=== PATIENT | female | born 1985 | race Caucasian/White ===

== ENCOUNTER 2023-12-14 09:39 | Outpatient (CLI) | payer OTHER, SELFPAY ==
--- NOTE | 2023-12-14 11:15 | CRLHL7_ITS ---
For Patients: As a result of the Century Cures Act, medical imaging exams and procedure reports are released immediately into your electronic medical record. You may view this report before your referring provider. If you have questions, please contact your health care provider. INDICATION: Abdominal pain TECHNIQUE: Ultrasound OB pelvis transvaginal. Real-time vance-scale imaging of the pelvis was performed. COMPARISON: None FINDINGS: Sonographic imaging demonstrates a single living intrauterine gestation. The embryo demonstrates a regular cardiac rate measuring 100 beats per minute. The embryo`s crown rump length measurement of 0.2 cm corresponds to a gestational age of 5 weeks 5 days with a sonographic due date of 08/10/2024. There is a normal appearing yolk sac. There are no gross abnormalities noted within the embryo at this early state of development. The placenta has not yet developed. There is no sign of perigestational hemorrhage. Maternal right ovarian cyst measuring 10.5 x 10.3 x 11.9 centimeters without septation. Likely left ovarian corpus luteum measuring 3.5 centimeters. There are no suspicious fluid collections noted in the cul-de-sac. Intrauterine device at the lower uterine segment extending to the cervix with 1 arm extending to the margin of the gestational sac. IMPRESSION: 1. Single live intrauterine gestation with a sonographic age of 5 weeks 5 days. 2. Intrauterine device present within the lower uterine segment extending to the cervix with 1 arm extending near the margin of the gestational sac. 3. Left ovarian corpus luteum with right ovarian simple cyst measuring up to 11.9 centimeters. Dictated by Reyes Mascorro MD @ 12/14/2023 11:37:07 AM (Electronically Signed)
== END 2023-12-14 09:40 | disposition home or self-care (01) ==
PROVIDERS: PCP Family Medicine; Visit Provider Family Medicine
DX: M54.9 Dorsalgia, unspecified (principal); R10.9 Unspecified abdominal pain; Z32.01 Encounter for pregnancy test, result positive
CPT/HCPCS: 76817; 80053; 84702; 86140; 87086; 93976

== ENCOUNTER 2023-12-25 12:47 | Outpatient (CLI) | payer OTHER, SELFPAY ==
--- NOTE | 2023-12-25 13:00 | CRLHL7_ITS ---
For Patients: As a result of the Century Cures Act, medical imaging exams and procedure reports are released immediately into your electronic medical record. You may view this report before your referring provider. If you have questions, please contact your health care provider. INDICATION: Follow-up viability COMPARISON: 12/14/2023 TECHNIQUE: Real-time vance-scale imaging of the pelvis was performed. FINDINGS: Sonographic imaging demonstrates a single living intrauterine gestation. The embryo demonstrates a regular cardiac rate measuring 160 beats per minute. The embryo`s crown-rump length measurement of 1.0 cm corresponds to a gestational age of 7 weeks 1 day with a sonographic due date of 08/11/2024. There is a normal-appearing yolk sac. There are no gross abnormalities noted within the embryo at this early state of development. The gestational sac has a normal appearance. There is no evidence of a perigestational hemorrhage. The amount of fluid within the sac appears appropriate for gestational age. The cervix is closed. The myometrium appears normal. Simple right ovarian cyst measures 12.1 x 9.6 x 9.6 cm. Left ovarian cyst measures 3.5 x 3.2 x 2.9 cm. IUD is no longer present. There are no suspicious fluid collections noted in the cul-de-sac. IMPRESSION: Single living intrauterine with sonographic gestational age 7 weeks 1 day and sonographic due date of 08/11/2024. Bilateral ovarian cysts measuring up to 12.1 cm on the right. Dictated by Az Downey MD @ 12/26/2023 7:37:04 AM (Electronically Signed)
== END 2023-12-25 12:48 | disposition home or self-care (01) ==
LOC: US 12:49
PROVIDERS: PCP Family Medicine; Visit Provider Obstetrics & Gynecology
DX: Z34.91 Encounter for supervision of normal pregnancy, unspecified, first trimester (principal); O34.81 Maternal care for other abnormalities of pelvic organs, first trimester; N83.201 Unspecified ovarian cyst, right side; N83.202 Unspecified ovarian cyst, left side; Z3A.01 Less than 8 weeks gestation of pregnancy
CPT/HCPCS: 76801; 76817; 93976

== ENCOUNTER 2023-12-25 14:16 | Outpatient (CLI) | payer OTHER, SELFPAY ==
[2023-12-25 23:10] LABS: Chlamydia DNA Amplified* NOT DETECTED (No Detected); GC DNA Amplified* NOT DETECTED (No Detected)
[2023-12-29 14:02] LABS: HPV Source Cervical; HPV, High Risk by TMA Not Detected
== END 2023-12-25 14:17 | disposition home or self-care (01) ==
PROVIDERS: PCP Family Medicine; Visit Provider Obstetrics & Gynecology
DX: Z34.91 Encounter for supervision of normal pregnancy, unspecified, first trimester (principal); Z12.4 Encounter for screening for malignant neoplasm of cervix; Z3A.01 Less than 8 weeks gestation of pregnancy
CPT/HCPCS: 86592; 86703; 86704; 86706; 86762; 86787; 86803; 86850; 86900; 86901; 87086; 87340; 87491; 87591; 87624; 87625; 88141; 88142

== ENCOUNTER 2024-03-27 07:47 | Outpatient (CLI) | payer OTHER, SELFPAY | END 2024-03-27 07:48 | disposition home or self-care (01) | LOC: US 07:49 | PROVIDERS: PCP Family Medicine; Visit Provider Obstetrics & Gynecology | DX: O09.522 Supervision of elderly multigravida, second trimester (principal); O34.82 Maternal care for other abnormalities of pelvic organs, second trimester; N83.201 Unspecified ovarian cyst, right side; Z3A.20 20 weeks gestation of pregnancy | CPT/HCPCS: 76811; 76817 ==

== ENCOUNTER 2024-03-29 11:20 | Outpatient (CLI) | payer OTHER, SELFPAY | END 2024-03-29 11:21 | disposition home or self-care (01) | LOC: NFLDREF 04-02 09:52 | PROVIDERS: PCP Family Medicine; Referring Provider Family Medicine; Visit Provider Obstetrics & Gynecology | DX: O10.912 Unspecified pre-existing hypertension complicating pregnancy, second trimester (principal); Z3A.20 20 weeks gestation of pregnancy | CPT/HCPCS: 82565; 82570; 84156; 84450; 84460 ==

== ENCOUNTER 2024-04-01 08:00 | Outpatient (CLI) | payer OTHER, SELFPAY | END 2024-04-01 08:01 | disposition home or self-care (01) | LOC: NFLDREF 04-03 03:46 | PROVIDERS: PCP Family Medicine; Referring Provider Family Medicine; Visit Provider Obstetrics & Gynecology | DX: O10.912 Unspecified pre-existing hypertension complicating pregnancy, second trimester (principal); Z3A.21 21 weeks gestation of pregnancy | CPT/HCPCS: 82570; 84156 ==

== ENCOUNTER 2024-04-02 15:13 | Outpatient (CLI) | payer OTHER, SELFPAY | END 2024-04-02 15:14 | disposition home or self-care (01) | LOC: MRI 15:15 | PROVIDERS: PCP Family Medicine; Visit Provider Obstetrics & Gynecology | DX: O09.529 Supervision of elderly multigravida, unspecified trimester (principal); O34.80 Maternal care for other abnormalities of pelvic organs, unspecified trimester; N83.201 Unspecified ovarian cyst, right side; N83.202 Unspecified ovarian cyst, left side | CPT/HCPCS: 72195 ==

== ENCOUNTER 2024-04-24 12:01 | Outpatient (CLI) | payer OTHER, SELFPAY | END 2024-04-24 12:02 | disposition home or self-care (01) | LOC: US 12:02 | PROVIDERS: PCP Family Medicine; Visit Provider Obstetrics & Gynecology | DX: Z34.92 Encounter for supervision of normal pregnancy, unspecified, second trimester (principal); Z3A.24 24 weeks gestation of pregnancy | CPT/HCPCS: 76816 ==

== ENCOUNTER 2024-05-06 15:25 | Outpatient (CLI) | payer OTHER, SELFPAY ==
--- NOTE | 2024-05-06 15:45 | CRLHL7_ITS ---
For Patients: As a result of the Century Cures Act, medical imaging exams and procedure reports are released immediately into your electronic medical record. You may view this report before your referring provider. If you have questions, please contact your health care provider. CLINICAL HISTORY: cyst of kidney COMPARISON: MRI 04/02/2024 TECHNIQUE: Castellano scale and color Doppler images were acquired of the kidneys and urinary bladder. FINDINGS: Nonvascular hyperechoic structure right kidney measures 1.5 x 1.2 x 1.2 cm corresponds with a nonenhancing right renal lesion on prior MRI. No hydronephrosis. No renal stone. The right kidney measures 12.7cm in length and the left kidney measures 12.5cm in length. The renal cortex appears of normal thickness. Bladder volume 91 cc. Color Doppler images reveal a normal appearance of both ureteral jets. There is no evidence of bladder calculi or diverticula. IMPRESSION: Benign nonvascular hyperechoic structure arising from the lower pole of the right kidney measuring 1.5 cm compatible with an angiomyolipoma. Dictated by Az Downey MD @ 05/07/2024 8:45:25 AM (Electronically Signed)
== END 2024-05-06 15:26 | disposition home or self-care (01) ==
PROVIDERS: PCP Family Medicine; Visit Provider Obstetrics & Gynecology
DX: O26.839 Pregnancy related renal disease, unspecified trimester (principal); N28.1 Cyst of kidney, acquired
CPT/HCPCS: 76770

== ENCOUNTER 2024-05-24 12:05 | Outpatient (CLI) | payer OTHER, SELFPAY | END 2024-05-24 12:06 | disposition home or self-care (01) | LOC: NFLDREF 05-28 18:23 | PROVIDERS: PCP Family Medicine; Referring Provider Family Medicine; Visit Provider Obstetrics & Gynecology | DX: Z34.93 Encounter for supervision of normal pregnancy, unspecified, third trimester (principal); Z3A.28 28 weeks gestation of pregnancy | CPT/HCPCS: 86592 ==

== ENCOUNTER 2024-05-24 12:07 | Outpatient (CLI) | payer OTHER, SELFPAY ==
--- NOTE | 2024-05-24 12:15 | CRLHL7_ITS ---
For Patients: As a result of the Century Cures Act, medical imaging exams and procedure reports are released immediately into your electronic medical record. You may view this report before your referring provider. If you have questions, please contact your health care provider. OB ULTRASOUND GROWTH HERMELINDA by US: 08/10/2024. GA: 28 w, 6 d. Single. Comparison: 04/24/2024, 04/12/2024, 04/05/2024. INDICATION: Hypertension. TECHNIQUE: Real time vance scale imaging of the fetus was performed. Transabdominal. CERVIX: Not visualized. POSITIONING: Vertex. AMNIOTIC FLUID: 5.3 cm. SDP (N: greater than 2 x 1 cm) PLACENTA: Technique: Transabdominal. PLACENTA POSITION: Posterior. DOPPLER: heart rate: 135 bpm. BIOMETRY: BPD: 7.1 cm. 28 w, 4 d, 30 percent. HC: 26.5 cm. 28 w, 6 d, 17 percent. AC: 24.7 cm. 29 w, 0 d, 46 percent. FL: 5.4 cm. 28 w, 4 d, 26 percent. FL/AC ratio: 21.81 percent. HC/AC ratio: 1.07. EFW: 1282 g. Weight: 2 lbs, 13 oz. age by this US: 28 w, 5 d. HERMELINDA by this US: 08/11/2024. Percentile by HERMELINDA: 34 percent. IMPRESSION: 1. Sonographic gestational age 28 weeks 5 days and sonographic due date 08/11/2024. Good correlation with dates. Normal interval growth. 2. Estimated weight 34th percentile. Abdominal circumference 46th percentile. Az Downey M.D. Diagnostic Radiologist [email or web address] SP/Dictated by: Az Downey MD @ 05/24/2024 5:43:00 PM (Electronically Signed)
== END 2024-05-24 12:08 | disposition home or self-care (01) ==
LOC: US 12:07
PROVIDERS: PCP Family Medicine; Visit Provider Obstetrics & Gynecology
DX: O10.913 Unspecified pre-existing hypertension complicating pregnancy, third trimester (principal); Z3A.28 28 weeks gestation of pregnancy
CPT/HCPCS: 76816

== ENCOUNTER 2024-06-11 09:16 | Outpatient (CLI) | payer OTHER, SELFPAY | END 2024-06-11 09:17 | disposition home or self-care (01) | PROVIDERS: PCP Family Medicine; Visit Provider Obstetrics & Gynecology | DX: O10.913 Unspecified pre-existing hypertension complicating pregnancy, third trimester (principal); Z3A.31 31 weeks gestation of pregnancy | CPT/HCPCS: 82565; 82570; 84156; 84450; 84460; 84550 ==

== ENCOUNTER 2024-06-13 11:17 | Outpatient (CLI) | payer OTHER, SELFPAY ==
[2024-06-13] VITALS (61 sets, daily range): BP systolic 116–163; BP diastolic 58–92; PULSE 106–138; O2SAT 94–98
[2024-06-13] MEDS: NIFEdipine 10 MG CAPSULE PO (12:02)
[2024-06-13] MEDS: LACTATED RINGERS 1000 ML 1,000 ML 500 ML IV (12:25)
[2024-06-13 12:30] LABS: Hematocrit 38.5 % (33.0-51.0); Hemoglobin* 13.1 gm/dL (12.0-16.0); Mean Corpuscular HGB Conc 34 gm/dL (32-36); Mean Corpuscular Hemoglobin 31 pg (26-34); Mean Corpuscular Volume 91 fL (80-100); Platelet Count* 287 K/uL (140-440); Red Blood Count 4.21 m/uL (4.00-5.20); Slide Review Reflex No
[2024-06-13 12:31] LABS: Total Protein Urine 15 mg/dL
[2024-06-13 12:32] LABS: Creatinine Urine 54.7 mg/dL; Protein Creatinine Ratio Urine 0.27 (0-0.19)
--- NOTE | 2024-06-13 12:38 | CRLHL7_ITS ---
For Patients: As a result of the Cures Act, medical imaging exams and procedure reports are released immediately into your electronic medical record. You may view this report before your referring provider. If you have questions, please contact your health care provider. INDICATION: : CRACKS IN LOWER LOBES COMPARISON: None TECHNIQUE: One view(s) of the chest FINDINGS: Examination is somewhat limited secondary to patient body habitus. The cardiomediastinal silhouette and pulmonary vasculature are unremarkable. There is no focal airspace consolidation, pleural effusion, or pneumothorax. No displaced fractures. IMPRESSION: No acute cardiopulmonary process. Dictated by Edy Shafer MD @ 06/13/2024 1:06:52 PM (Electronically Signed)
[2024-06-13 12:46] LABS: INR 0.88 (0.91-1.10); Prothrombin Time 12.7 Seconds
[2024-06-13 12:47] LABS: Fibrinogen* 620 mg/dL (200-450); Partial Thromboplastin Time* 27 Seconds (23-33)
[2024-06-13 12:48] LABS: Alanine Aminotransferase* 20 U/L (4-35); Aspartate Amino Transferase* 27 U/L (12-35); Blood Urea Nitrogen* 7 mg/dL (5-24); Creatinine* 0.4 mg/dL (0.5-1.5); Estimated Glomerular Filt Rate 131 ml/min
[2024-06-13] MEDS: ACETAMINOPHEN 500 MG TABLET 1000 MG PO (13:37)
--- NOTE | 2024-06-13 13:57 | P.OBO_ITS ---
OB Outpatient HPI History of Present Illness Date Seen: 06/13/24 History of Present Illness: 38 year old at 31 5/7 weeks gestation by first trimester US, HERMELINDA 08/10/24, presents with concern for headache, elevated heart rate and blood pressures at home. Patient was seen in clinic about 2 days ago and was started on Procardia ER 30mg daily. Patient states she started medication yesterday morning was then at work and her watch alerted her of elevated HR- in the 130s per patient. She also struggled with a headache yesterday that resolved after rest. Patient states that this morning took Procardia again and since symptoms restarted decided to come in for evaluation. Denies chest pain, has noticed some more swelling of hands and feet, but no significant changes there, denies pain in the upper abdomen, no scotoma, no SOB, no orthopnea. Baby moving naturally: Yes Bleeding: No Contractions: No Leaking fluid: No Discharge: No Heartburn: Yes Back pain: No Other comments: Meds Home Medications and Allergies Home Medications ?Medication ?Instructions ?Recorded ?Confirmed ?Type vits no.126-ferrous fum 1 tab PO QDAY 02/26/24 06/13/24 History 28 mg iron-folic acid 800 mcg tablet (Classic ) loratadine 10 mg tablet (Claritin) 10 mg PO QDAY 05/28/24 06/13/24 History Allergies Allergy/AdvReac Type Severity Reaction Status Date / Time azithromycin Allergy Intermediate Hives Verified 06/13/24 11:49 [facility] Medical History (Updated 05/08/24 @ 14:19 by Shae Abdullahi MD) Major depression, recurrent ?F33.9 - Major depressive disorder, recurrent, unspecified (ICD-10) Migraine ?G43.909 - Migraine, unspecified, not intractable, without status migrainosus (ICD-10) Irregular menstrual cycle ?N92.6 - Irregular menstruation, unspecified (ICD-10) History of gestational hypertension (2013) ?Z87.59 - Personal history of other complications of , childbirth and the puerperium (ICD-10) Hirsutism ?L68.0 - Hirsutism (ICD-10) Group B Streptococcus carrier, +RV culture, currently (05/18/18) ?O99.820 - Streptococcus B carrier state complicating (ICD-10) Generalized anxiety disorder ?F41.1 - Generalized anxiety disorder (ICD-10) Surgical History (Updated 12/14/23 @ 12:06 by Yocasta Hughes MD) Status post repeat low transverse section (05/29/18) ?Z98.891 - History of uterine scar from previous surgery (ICD-10) History of third molar tooth extraction ?K08.409 - Partial loss of teeth, unspecified cause, unspecified class (ICD- 10) History of section ?Z98.891 - History of uterine scar from previous surgery (ICD-10) Family History Maternal Grandfather Bladder cancer Esophageal cancer Mother Breast cancer High blood pressure Maternal Grandmother Diabetes Social History (Updated 12/25/23 @ 13:56 by Regina Melchor MA) Narrative: , two kids, nonsmoker, social alcohol What is your current living situation?: I presently have a place to live Problems where you live: no known problems In the past 12 months, utilities in danger of being shut off: no In past 12 months, lack of transportation kept you from medical appts, meetings, work, or getting things needed for daily living: no In the past 12 mos, have been you worried that your food would run out before you had money to buy more?: never true In the past 12 mos, the food you bought just didn't last and you didn't have money to buy more?: never true Smoking Status: Never smoker How often does anyone, including family, friends and others, physically hurt you : never How often does anyone, including family, friends and others, insult or talk down to you: never How often does anyone, including family, friends and others, threaten you with harm: never How often does anyone, including family, friends and others, scream or curse at you: never History History 3 Elective abortions Para 2 Spontaneous abortions Hx # Term Pregnancies Ectopic pregnancies Hx # Pregnancies Multiple births Number of Living Children 2 Past Pregnancies Del. Date GA/Weeks Outcome Route wt Inf Gender Labor Lgth Anesthesia Location Provider Compli 03/10/13 live - full term low transverse Male 05/29/18 live - full term low transverse Femal e Delivery Date: 03/10/13 Last Updated by: Regina Galeas ~ [facility] Delivery Date: 05/29/18 Last Updated by: Regina Galeas ~ [facility] OB - H&P: Exam Physical Exam Vital signs: Pulse BP Pulse Ox 114 H 136/81 95 06/13/24 13:55 06/13/24 13:55 06/13/24 13:53 Narrative: GENERAL APPEARANCE:? normal affect, alert, no distress MOOD:? appropriate CHEST:? clear to auscultation bilaterally HEART:? tachycardic, no significant murmurs ABDOMEN:? Gravid, nontender EXTREMITIES:? Mild trace edema up to ankles bilaterally, no asymmetry, no skin changes, negative Pia's sign. NST: 130bpm/positive accelerations/sporadic small variable decelerations/moderate variability/sporadic uterine contractions Labs Labs Laboratory Tests 06/13/24 06/13/24 Range/Units 12:23 12:05 WBC 16.10 H (4.50-11.00) K/uL RBC 4.21 (4.00-5.20) m/uL Hgb 13.1 (12.0-16.0) gm/dL Hct 38.5 (33.0-51.0) % MCV 91 (80-100) fL MCH 31 (26-34) pg MCHC 34 (32-36) gm/dL Plt Count 287 (140-440) K/uL INR 0.88 L (0.91-1.10) APTT 27 (23-33) Seconds Fibrinogen 620 H (200-450) mg/dL BUN 7 (5-24) mg/dL Creatinine 0.4 L (0.5-1.5) mg/dL Estimated GFR 131 ml/min AST 27 (12-35) U/L ALT 20 (4-35) U/L Urine Creatinine 54.7 mg/dL Protein/Creatinin Ratio 0.27 H (0-0.19) Urine Total Protein 15 mg/dL Assessment and Plan Assessment and plan (1) : Status: Acute (2) Chronic hypertension in : Status: Acute Plan 38 y/o who presents for evaluation due to concerns of headache, elevated heart rate and blood pressure. Patient is 31 5/7 weeks and with diagnosis of CHTN. Started on Nifedipine ER 30 mg daily 2 days ago. Upon evaluation at labor and delivery initially patient found severely hypertensive and we treated this with 1 dose of oral nifedipine 10mg immediate release. This decreased blood pressures to the mild high range. Lab work repeated today and no concern for thrombocytopenia, transaminitis or kidney dysfunction. P/C ratio normal as well. Nursing team upon initial evaluation had concerns about decreased lung sound in her bases and in the setting of tachycardia, elected to proceed with CXRAY that was normal. Upon my physical exam no concern for DVT, PE. No concern for cardiac etiology, and findings most consistent with uncontrolled CHTN as well as suspicion for medication side effect. We did treat headache with Tylenol and this resolved, IVfs given and tachycardia also improved. Discussed possibility of changing her to Labetalol as she has had baseline higher heart rate and labetalol could be helpful. We will try this approach for the moment, I have ordered for her to start Labetalol 200mg BID tonight, discontinue Nifedipine. She will continue to monitor BPs as she is doing at home, will present for re evaluation if there are concerns for persistently elevated BPs in the 160s systolics or 100s diastolics, headache that does not improve with Tylenol, persistent vision changes or pain in her upper abdomen. She has a clinic visit already scheduled for Monday06/17/24.
--- NOTE | 2024-06-13 16:14 | PC.OBNST ---
NST Note NST Note Start: 06/13/24 11:32 Freq: ONCE Status: Active Protocol: Document 06/13/24 16:12 BAW (Rec: 06/13/24 16:14 BAW No Response) NST Note 3 Para (# of births) 2 EDC 08/10/24 Gestational Age In Weeks & Days 31 Weeks & 5 Days Patient Presented with Complaint(s) of Headache,Other Other Complaints R/O Pre E Reactive Yes Appropriate for Gestational Age Yes HAMIDA Cotto RNC Date 06/13/24 Reactive Yes Appropriate for Gestational Age Yes HAMIDA Bowen RN Date 06/13/24 OB NST charge Yes Complete NST Note via Write Note Yes The provider's electronic signature indicates the NST is reactive/appropriate for gestational age. *Note to provider: If an addendum is required, open the patient's chart and click on the note under the Nurse/Allied Health tab.
== END 2024-06-13 15:06 | disposition home or self-care (01) ==
LOC: OB OUT 11:19 → OB 11:46
PROVIDERS: PCP Family Medicine; Visit Provider Obstetrics & Gynecology
DX: O26.893 Other specified pregnancy related conditions, third trimester (principal); R51.9 Headache, unspecified; Z3A.31 31 weeks gestation of pregnancy
CPT/HCPCS: 36415; 59025; 71045; 82565; 82570; 84156; 84450; 84460; 84520; 85027; 85384; 85610; 85730; G0463; A9270; J7120

== ENCOUNTER 2024-06-17 12:48 | Outpatient (CLI) | payer OTHER, SELFPAY ==
--- NOTE | 2024-06-17 13:00 | CRLHL7_ITS ---
For Patients: As a result of the Century Cures Act, medical imaging exams and procedure reports are released immediately into your electronic medical record. You may view this report before your referring provider. If you have questions, please contact your health care provider. OB ULTRASOUND LMP: Unknown. HERMELINDA by US: 08/10/2024. GA: 32 w, 2 d. Single. Comparison: 05/24/2024, 04/24/2024, 04/12/2024. MRI 04/02/2024. INDICATION: Pre-existing HTN. TECHNIQUE: Real time grayscale imaging of the fetus was performed. Transabdominal. CERVIX: Not visualized. POSITIONING: Vertex. AMNIOTIC FLUID: BRITANY: 27.4 cm. 9.3 cm SDP (N: greater than 2 x 1 cm) BIOPHYSICAL PROFILE: 2: Gross body movements 2: tone 2: Respiratory activity 2: Amniotic fluid SDP (N: greater than 2 x 1 cm) 09/13: Total score PLACENTA: Technique: Transabdominal. PLACENTA POSITION: Posterior. DOPPLER: heart rate: 138 bpm. BIOMETRY: BPD: 8.1 cm. 32 w, 3 d, 45.5 percent. HC: 29.8 cm. 33 w, 0 d, 31.2 percent. AC: 27.9 cm. 31 w, 6 d, 38.1 percent. FL: 6.0 cm. 31 w, 2 d, 13.4 percent. FL/AC ratio: 21.5 percent. HC/AC ratio: 1.1. EFW: 1853 g. Weight: 4 lbs, 1 oz. age by this US: 32 w, 1 d. HERMELINDA by this US: 08/11/2024. Percentile by HERMELINDA: 26.7 percent. IMPRESSION: 1. Normal biophysical profile 09/13. 2. Sonographic gestational age 32 weeks 1 day and sonographic due date 08/11/2024. Good correlation with dates. Normal interval growth. 3. Estimated weight 27th percentile. Abdominal circumference 38th percentile. 4. Amniotic fluid, single deepest pocket 9.3 cm. BRITANY 27.4 cm. 5. Large right adnexal cyst measures 14.3 x 11.3 x 9.2 cm, previously measuring 15.1 cm on 04/24/2024. 6. Left adnexal cysts measure up to 4.9 x 4.0 x 4.1 cm, previously measuring up to 5.2 cm on 04/24/2024. Solid nodular area associated with one of the left adnexal cysts measures 1 cm, not significantly changed. Az Downey M.D. Diagnostic Radiologist [email or web address] VANESSA/jinocente jj/Dictated by: Az Downey MD @ 06/18/2024 6:08:00 AM (Electronically Signed)
== END 2024-06-17 12:49 | disposition home or self-care (01) ==
LOC: US 12:49
PROVIDERS: PCP Family Medicine; Visit Provider Obstetrics & Gynecology
DX: O10.913 Unspecified pre-existing hypertension complicating pregnancy, third trimester (principal); O09.523 Supervision of elderly multigravida, third trimester; O34.83 Maternal care for other abnormalities of pelvic organs, third trimester; N83.292 Other ovarian cyst, left side; N83.291 Other ovarian cyst, right side; Z3A.32 32 weeks gestation of pregnancy
CPT/HCPCS: 76816; 76819; 82565; 82570; 84156; 84450; 84460

== ENCOUNTER 2024-06-24 10:37 | Outpatient (CLI) | payer OTHER, SELFPAY ==
--- NOTE | 2024-06-24 10:45 | CRLHL7_ITS ---
For Patients: As a result of the Cures Act, medical imaging exams and procedure reports are released immediately into your electronic medical record. You may view this report before your referring provider. If you have questions, please contact your health care provider. OB ULTRASOUND HERMELINDA by US: 08/10/2024. GA: 33 w, 2 d. Single. Comparison: 06/17/2024, 05/24/2024, 04/24/2024. INDICATION: CHTN. TECHNIQUE: Real time grayscale imaging of the fetus was performed. Transabdominal. CERVIX: Not visualized. POSITIONING: Vertex. AMNIOTIC FLUID: 6.6 cm. SDP (N: greater than 2 x 1 cm) BIOPHYSICAL PROFILE: 2: Gross body movements 2: tone 2: Respiratory activity 2: Amniotic fluid SDP (N: greater than 2 x 1 cm) 8/8: Total score PLACENTA: Technique: Transabdominal. PLACENTA POSITION: Posterior. DOPPLER: heart rate: 134 bpm. IMPRESSION: 1. Normal biophysical profile score 8/8. 2. Complex right ovarian cyst with diffuse low-level internal echoes measures 15.3 x 9.5 x 11.7 cm. Simple left ovarian cyst measures 4.8 x 4.5 x 5.4 cm. Az Downey M.D. Diagnostic Radiologist [email or web address] VANESSA/susan davis/Dictated by: Az Downey MD @ 06/24/2024 11:38:00 AM (Electronically Signed)
== END 2024-06-24 10:38 | disposition home or self-care (01) ==
LOC: US 10:37
PROVIDERS: PCP Family Medicine; Visit Provider Obstetrics & Gynecology
DX: O10.913 Unspecified pre-existing hypertension complicating pregnancy, third trimester (principal); O09.523 Supervision of elderly multigravida, third trimester; Z3A.33 33 weeks gestation of pregnancy
CPT/HCPCS: 76819; 82565; 82570; 84156; 84450; 84460

== ENCOUNTER 2024-07-02 13:33 | Outpatient (CLI) | payer OTHER, SELFPAY ==
--- NOTE | 2024-07-02 13:45 | CRLHL7_ITS ---
For Patients: As a result of the Cures Act, medical imaging exams and procedure reports are released immediately into your electronic medical record. You may view this report before your referring provider. If you have questions, please contact your health care provider. OB ULTRASOUND HERMELINDA by US: 08/10/2024. GA: 34 w, 3 d. Single. INDICATION: HTN. TECHNIQUE: Real time grayscale imaging of the fetus was performed. Transabdominal. CERVIX: Not visualized. POSITIONING: Vertex. AMNIOTIC FLUID: 6.6 cm. SDP (N: greater than 2 x 1 cm) BIOPHYSICAL PROFILE: 2: Gross body movements 2: tone 2: Respiratory activity 2: Amniotic fluid SDP (N: greater than 2 x 1 cm) 8/8: Total score PLACENTA: Technique: Transabdominal. PLACENTA POSITION: Posterior. DOPPLER: heart rate: 131 bpm. IMPRESSION: 1. Normal biophysical profile score 8/8. 2. Large right ovarian cyst with diffuse low-level internal echoes again noted measuring 16.5 x 10.3 x 9.2 cm, previously measuring 15.3 cm. 3. Simple left ovarian cyst measures 5.8 x 4.6 x 5.4 cm, previously measuring 5.4 cm. Az Downey M.D. Diagnostic Radiologist [email or web address] VANESSA/susan davis/Dictated by: Az Downey MD @ 07/03/2024 9:22:00 AM (Electronically Signed)
== END 2024-07-02 13:34 | disposition home or self-care (01) ==
LOC: US 13:33
PROVIDERS: PCP Family Medicine; Visit Provider Obstetrics & Gynecology
DX: O10.913 Unspecified pre-existing hypertension complicating pregnancy, third trimester (principal); O09.523 Supervision of elderly multigravida, third trimester; O34.83 Maternal care for other abnormalities of pelvic organs, third trimester; N83.292 Other ovarian cyst, left side; N83.201 Unspecified ovarian cyst, right side; Z3A.34 34 weeks gestation of pregnancy
CPT/HCPCS: 76819; 82565; 82570; 84156; 84450; 84460

== ENCOUNTER 2024-07-08 12:03 | Outpatient (CLI) | payer OTHER, SELFPAY ==
--- NOTE | 2024-07-08 12:15 | CRLHL7_ITS ---
For Patients: As a result of the Century Cures Act, medical imaging exams and procedure reports are released immediately into your electronic medical record. You may view this report before your referring provider. If you have questions, please contact your health care provider. OB ULTRASOUND HERMELINDA by US: 08/10/2024. GA: 35 w, 2 d. Single. COMPARISON: 07/02/2024, 06/24/2024, 06/17/2024. INDICATION: CHTN. TECHNIQUE: Real time vance scale imaging of the fetus was performed. Transabdominal imaging performed. CERVIX: Not visualized. POSITIONING: Vertex. AMNIOTIC FLUID: 6.7 cm. SDP (N: greater than 2 x 1 cm). BIOPHYSICAL PROFILE: Gross body movements: 2. tone: 2. Respiratory activity: 2. Amniotic fluid: 2. SDP (N: greater than 2 x 1 cm) Total score: 8. PLACENTA: Technique: Transabdominal. PLACENTA POSITION: Posterior. DOPPLER: heart rate: 137 bpm. IMPRESSION: 1. Normal biophysical profile 09/13. 2. Similar appearance of the ovarian cysts. Az Downey M.D. Diagnostic Radiologist [email or web address] THERESA/Dictated by: Az Downey MD @ 07/08/2024 8:54:00 PM (Electronically Signed)
== END 2024-07-08 12:04 | disposition home or self-care (01) ==
LOC: US 12:03
PROVIDERS: PCP Family Medicine; Visit Provider Obstetrics & Gynecology
DX: O09.523 Supervision of elderly multigravida, third trimester (principal); O10.913 Unspecified pre-existing hypertension complicating pregnancy, third trimester; Z3A.35 35 weeks gestation of pregnancy
CPT/HCPCS: 76819

== ENCOUNTER 2024-07-08 12:11 | Outpatient (CLI) | payer OTHER, SELFPAY | END 2024-07-08 12:12 | disposition home or self-care (01) | LOC: NFLDREF 07-11 14:00 | PROVIDERS: PCP Family Medicine; Referring Provider Family Medicine; Visit Provider Obstetrics & Gynecology | DX: O10.913 Unspecified pre-existing hypertension complicating pregnancy, third trimester (principal); Z3A.35 35 weeks gestation of pregnancy | CPT/HCPCS: 82565; 82570; 84156; 84450; 84460; 87081; 87653 ==

== ENCOUNTER 2024-07-15 12:41 | Outpatient (CLI) | payer OTHER, SELFPAY ==
--- NOTE | 2024-07-15 13:00 | CRLHL7_ITS ---
For Patients: As a result of the Century Cures Act, medical imaging exams and procedure reports are released immediately into your electronic medical record. You may view this report before your referring provider. If you have questions, please contact your health care provider. OB ULTRASOUND FOLLOW-UP GROWTH WITH BIOPHYSICAL PROFILE, TRANSABDOMINAL LMP: Unknown. HERMELINDA by US: 08/10/2024. GA: 36 w, 2 d. Single. Comparison: 07/08/2024, 07/02/2024, 06/24/2024. INDICATION: CHTN. TECHNIQUE: Real time vance scale imaging of the fetus was performed. Transabdominal imaging performed. CERVIX: Not Visualized. POSITIONING: Vertex. AMNIOTIC FLUID: 5.6 cm SDP (N: greater than 2 x 1 cm) BIOPHYSICAL PROFILE: Gross body movements: 2. tone: 2. Respiratory activity: 2. Amniotic fluid: 2. SDP (N: greater than 2 x 1 cm). Total score: 8. PLACENTA: Technique: Transabdominal. PLACENTA POSITION: Fundal, posterior. DOPPLER: heart rate: 142 bpm. BIOMETRY: BPD: 8.8 cm. 35 w, 3 d, 35.3 percent. HC: 31.8 cm. 35 w, 6 d, 12.7 percent. AC: 32.0 cm. 36 w, 0 d, 51.2 percent. FL: 6.4 cm. 33 w, 0 d, <3 percent. FL/AC ratio: 20.0 percent. HC/AC ratio: 1.0. EFW: 2595 g. Weight: 5 lbs, 12 oz. age by this US: 35 w, 1 d. HERMELINDA by this US: 08/18/2024. Percentile by HERMELINDA: 22.2 percent. IMPRESSION: 1. Stable appearance of the bilateral ovarian cysts. 2. Sonographic gestational age 35 weeks 1 day and sonographic due date 08/18/2024. Sonographic age is 8 days behind the clinical age. 3. Estimated weight 22nd percentile. Abdominal circumference 51st percentile. Femur length less than 3rd percentile. Decreased FL/AC ratio. 4. Biophysical profile 09/13. Az Downey M.D. Diagnostic Radiologist [email or web address] SP/Dictated by: Az Downey MD @ 07/15/2024 4:46:00 PM (Electronically Signed)
== END 2024-07-15 12:42 | disposition home or self-care (01) ==
LOC: US 12:42
PROVIDERS: PCP Family Medicine; Visit Provider Obstetrics & Gynecology
DX: O10.913 Unspecified pre-existing hypertension complicating pregnancy, third trimester (principal); O09.523 Supervision of elderly multigravida, third trimester; Z3A.36 36 weeks gestation of pregnancy
CPT/HCPCS: 76816; 76819

== ENCOUNTER 2024-07-15 12:52 | Outpatient (CLI) | payer OTHER, SELFPAY | END 2024-07-15 12:53 | disposition home or self-care (01) | LOC: NFLDREF 07-16 01:42 | PROVIDERS: PCP Family Medicine; Referring Provider Family Medicine; Visit Provider Obstetrics & Gynecology | DX: O10.913 Unspecified pre-existing hypertension complicating pregnancy, third trimester (principal); Z3A.36 36 weeks gestation of pregnancy | CPT/HCPCS: 82565; 82570; 84156; 84450; 84460 ==

== ENCOUNTER 2024-07-15 14:52 | Outpatient (CLI) | payer OTHER, SELFPAY ==
[2024-07-15] VITALS (26 sets, daily range): BP systolic 136–161; BP diastolic 78–96; PULSE 80–105; RESP 20; TEMP 36.7; O2SAT 95–99
--- NOTE | 2024-07-15 17:04 | PC.OBNST ---
NST Note NST Note Start: 07/15/24 15:13 Freq: ONCE Status: Active Protocol: Document 07/15/24 17:01 MORMON (Rec: 07/15/24 17:04 MORMON No Response) NST Note 3 Para (# of births) 2 EDC 08/10/24 Gestational Age In 36 Weeks & 2 Days Weeks & Days High Risk Factors High Blood Pressure - Preexisting,Advanced Maternal Age Patient Presented Other with Complaint(s) of Other Complaints Elevated blood pressures in clinic Reactive Yes Appropriate for Yes Gestational Age HAMIDA Floyd Date 07/15/24 Reactive Yes Appropriate for Yes Gestational Age HAMIDA Senior Date 07/15/24 OB NST charge Yes Complete NST Note Yes via Write Note The provider's electronic signature indicates the NST is reactive/appropriate for gestational age. *Note to provider: If an addendum is required, open the patient's chart and click on the note under the Nurse/Allied Health tab.
--- NOTE | 2024-07-15 17:43 | P.OBLDTN_ITS ---
OB - Triage/Final Diagnosis Visit Information Time Seen by Provider: 16:00 Date Seen: 07/15/24 Narrative: The patient is a 38 year old 3 para 2001 at 36.2 weeks gestation by LMP, who presents with elevated blood pressure. She is currently on 600 mg TID of l abetalol. I saw her clinic briefly. She had an initial BP 161/96 that decreased to 153/92. Review of her BP log showed BP 140-150s/70-90s. She did not take her midday dose of labetalol. I asked her to take it when she presented to L&D BP monitoring in the L&D: 146/83, 149/85, 143/81, 140/79, 136/78, 137/81 It is reassuring that the labetalol decreased her BP to normal within 2 hours. This is what's anticipated for onset of action of labetalol. We discussed the importance of taking her BP medication on time. Recommend increasing labetalol 600 mg QID for the next two day prior to her scheduled CD on 07/17/24. Advised patient to taking her AM Labetalol prior to her delivery. We reviewed her pre-e labs: hgb 13.6, plt 231, Cr 0.5, AST 35, ALT 24, P/C ratio of 0.65. She does meet diagnosis of superimposed pre-eclampsia. A 37 week delivery is generally recommended for this diagnosis. However, given her difficult to control chronic hypertension, it is medically indicated that we proceed with delivery in the 36th week. She is s/p BMZ series. Denies any persistent headache, vision changes, SOB, right upper quadrant/epigastric pain, or rapidly expanding edema. We discussed: repeat delivery, bilateral salpingectomy, bilateral cystectomy and possibly right oophorectomy. She strongly desires sterilization. Discussed that my goal is to perform bilateral cystectomy. However, given the size of her right ovarian cyst, there might not be any more normal ovarian tissue left preserved. It is possible that she will require a right oophorectomy. On a she retains 1 ovary, she will not need hormone replacement therapy. She is in agreement with the plan. Physical exam: General: No acute distress Psych: Alert and oriented x4, full affect HEENT: Normocephalic, atraumatic Heart: Regular rate and rhythm, no murmur rub or gallop Lungs: Clear to auscultation bilaterally Abdomen: Gravid. Soft, no tenderness, rebound, or guarding. Cephalic. Lower extremities: +1 bilateral lower extremity edema. Pelvic exam: Deferred. She had growth and BPP today. EFW 22.2 percentile, AC 51st percentile. S DP 5.6 cm. BPP 8/8 Active movement. Denies Ctx, LOF, vaginal bleeding or abnormal vaginal discharge. Strict return and labor precautions reinforced. Plan: - repeat delivery, bilateral salpingectomy, bilateral cystectomy and possibly right oophorectomy on 07/17. - Increased labetalol 600 mg QID. Advised to take the AM of surgery. Evaluation Vital signs: Vital Signs - 24 hr 07/15/24 14:30 07/15/24 14:45 07/15/24 14:54 Temperature 98.1 F Pulse Rate Respiratory Rate 20 20 Blood Pressure 161/96 H 153/92 H Pulse Oximetry 97 97 95 07/15/24 14:59 07/15/24 15:02 07/15/24 15:04 Temperature Pulse Rate 90 Respiratory Rate Blood Pressure 146/83 H Pulse Oximetry 98 99 07/15/24 15:09 07/15/24 15:14 07/15/24 15:17 Temperature Pulse Rate 86 Respiratory Rate Blood Pressure 149/85 H Pulse Oximetry 98 99 07/15/24 15:19 07/15/24 15:24 07/15/24 15:29 Temperature Pulse Rate Respiratory Rate Blood Pressure Pulse Oximetry 98 98 98 07/15/24 15:33 07/15/24 15:34 07/15/24 15:39 Temperature Pulse Rate 94 Respiratory Rate Blood Pressure 143/81 H Pulse Oximetry 97 98 07/15/24 15:44 07/15/24 15:48 07/15/24 15:49 Temperature Pulse Rate 97 Respiratory Rate Blood Pressure 140/79 H Pulse Oximetry 98 99 07/15/24 15:54 07/15/24 15:59 07/15/24 16:03 Temperature Pulse Rate 96 Respiratory Rate Blood Pressure 136/78 Pulse Oximetry 98 96 07/15/24 16:04 07/15/24 16:09 07/15/24 16:14 Temperature Pulse Rate Respiratory Rate Blood Pressure Pulse Oximetry 97 99 98 07/15/24 16:18 07/15/24 16:19 Temperature Pulse Rate 97 Respiratory Rate Blood Pressure 137/81 Pulse Oximetry 97 Final Diagnosis (1) Chronic hypertension with superimposed pre-eclampsia: Status: Acute (2) AMA (advanced maternal age) multigravida 35+: Status: Acute (3) : Status: Acute (4) Right ovarian cyst: Status: Acute Problem details: 12/14/23: 9.6 x 10.1 x 11.4 cm (5) Major depression, recurrent: Status: Acute (6) Generalized anxiety disorder: Status: Acute (7) Hirsutism: Status: Acute
== END 2024-07-15 16:42 | disposition home or self-care (01) ==
LOC: OB OUT 14:52 → OB 14:54
PROVIDERS: PCP Family Medicine; Visit Provider Obstetrics & Gynecology
DX: O10.913 Unspecified pre-existing hypertension complicating pregnancy, third trimester (principal); O09.523 Supervision of elderly multigravida, third trimester; Z3A.36 36 weeks gestation of pregnancy
CPT/HCPCS: 59025; G0463

== ENCOUNTER 2024-07-17 05:43 | Inpatient (IN) | payer OTHER, SELFPAY ==
[2024-07-17] VITALS (29 sets, daily range): BP systolic 126–154; BP diastolic 84–99; PULSE 77–91; RESP 16–18; TEMP 36.7–37.1; O2SAT 97–100; BMI 38.2
[2024-07-17] MEDS: LACTATED RINGERS 1000 ML 1,000 ML 1200 ML IV (06:15)
[2024-07-17 06:31] LABS: Basophils Percent Auto 0.3 % (0.0-3.0); Eosinophils Percent Auto 0.8 % (0.0-7.0); Hematocrit 36.6 % (33.0-51.0); Hemoglobin* 12.4 gm/dL (12.0-16.0); Lymphocytes Percent Auto 15.5 % (20-44); Mean Corpuscular HGB Conc 34 gm/dL (32-36); Mean Corpuscular Hemoglobin 31 pg (26-34); Mean Corpuscular Volume 92 fL (80-100); Monocytes Percent Auto 7.8 % (0.0-11.0); Neutrophils Percent Auto 74.6 % (42.0-72.0); Platelet Count* 231 K/uL (140-440); RDW Coefficient of Variation % 12.7 % (11.5-15.5); Red Blood Count 3.98 m/uL (4.00-5.20); White Blood Count* 11.77 K/uL (4.50-11.00)
[2024-07-17 06:33] LABS: Slide Review Reflex No
--- NOTE | 2024-07-17 06:47 | W.PM.LDBA ---
Subjective History of Present Illness Time Seen by Provider: 06:55 Date Seen: 07/17/24 Narrative: Patient is being admitted to Labor and Delivery for scheduled delivery. She is a 38 year old at 36.4d weeks gestation. Her full history and physical was dictated by myself on 07/02/24. Please see this for details. Last dose of labetalol around 0200. No interval changes since she was last seen. Denies any persistent headache, vision changes, SOB, right upper quadrant/epigastric pain, or rapidly expanding edema. Specific Issues/Plans Partner: Bhavesh Children: Eve Hamilton Baby: [place] H&P completed by Bradly on 07/02/[address] Abdullahi on 07/15: [] # Chronic HTN, on medication (06/11) - Started Nifedipine XL 30 mg QD on 06/11. D/c due to side effect of headache and palpitation. - Started on 200 mg BID Labetalol --> increased to 300 mg BID on 06/17/24 --> 300 mg TID --> 400 mg TID on 07/02/24 --> 600mg TID 06/07/24 - Baseline labs next visit: drawn 03/29/24: wnl - [id number] growth scan starting at 28 weeks - Qweekly surveillance and pre-e labs: surveillance form modified on 06/11/24 - Discussed with patient that if she has SIPreE, delivery would be at 37 weeks on July 20. - CHTN difficult to control 36w-37.6w - Decision made to give patient BMZ#1 on 07/02/24 due to need to keep uptitrating medication and BP that are close to severe ranging. # Conception with Paragard IUD in place - US on 12/14/23: IUD within the lower uterine segment - s/p IUD removal to 12/14/23 without complication # Adnexal mass in - US on 12/14/23: right ovarian simple cyst measuring 11.9 cm - US on 01/04/24: 12.1 x 9.6 x 0.6 cm simple right ovarian cyst - Will monitor growth at anatomy scan - Torsion/rupture precautions reviewed with patient. - Plan for removal at time of repeat CD or sooner as clinically indicated. - Interval growth at FAS: 15.5 x 12 x 8.8 cm and presence of one internal septation (previously simple cyst measuring 12.5 x 11.3 x 10.6 cm on 12/25/2023 and 10.5 x 10.3 x 11.9 on 12/14/2023) - Plan: MRI ordered and PLATE EMBOSSER ONC at [facility] placed (both to be done on 04/02/24): No concern for malignancy. Patient declined surgery in the 2nd trimester. Opted for cystectomy at time of delivery. # Polyhydramnios (mild) > resolved as of 06/24 (MVP 6.6) - SDP 9.3 cm, BRITANY 27.4 cm - surveillance addressed in CHTN # Borderline short cervix - Cervical length 27.9 mm, lower limit of normal - Plan: Qweekly Transvaginal until 23 weeks # Previous CD x 2. Uterine window - Per last op note on 05/29/18: The entire lower uterine segment of the uterus was extremely thin consistent with a window, I would recommend a section prior to 38 weeks - Tentative plan of delivery at 37 weeks - with Vu on 07/22: scheduling form submitted on 05/24/24 # AMA - Level II US - Recommend low dose ASA due to AMA and BMI. Ordered on 01/26/24 # BMI - 35.2 kg/m2 - Growth at 32 weeks # GBS positive # Angiomyolipoma - Benign nonvascular hyperechoic structure arising from the lower pole of the right kidney measuring 1.5 cm compatible with an angiomyolipoma. Imagin03/27/24: EFW 61.2%, AC 56.6%. Normal fluid. Overall normal but Suboptimally used. Will repeat scan 04/05/24: EFW 40%, AC 54%tile. MVP 5.0 cm. Cervix 33.8 mm. Right ovary 13.5 x 9.3 x 10.1 cm left ovary 4.5 x 4.0 x 6.0 cm no increased vascularity or excrescence. 04/12/24: Cervical length 33.3 mm. Stable cervical length. Discontinue cervical length at this time. 04/24/24: EFW 47.9th percentile, AC 44.2 percentile. MVP 6.2 cm. No anomalies commonly detected by ultrasound were identified. Large right ovarian cyst, primarily simple in nature and 15 x 13 cm diameter. Two smaller left ovarian cyst, simple in nature, measuring 5.2 cm maximum diameter for 1 and a 2.9 cm maximum diameter for the other. 06/17: EFW 1853g at 27%ile, AC 38%ile. MVP 9.3cm, BRITANY 27.4cm. 14.3 x 11.3 x 9.2 cm right ovarian cyst, 4.9 x 4.0 x 4.1 cm. 06/24: Prelim tech review - 09/13 BPP, MVP 6.6cm. R ovarian cyst 16.9x10.5x11.6 and L stable. f/u radiology report details. 07/08: Vtx, SDP 6.7cm. BPP 09/13. No comment or measurement of ovarian cysts. NIPT: Declined COVID: Patient wants to plan out when she gets Covid/Flu - will let us know when she wants them (02/26/2024) Flu: Patient wants to plan out when she gets Covid/Flu - will let us know when she wants them (02/26/2024) Tdap:06/11/24 RSV: N/A 32wk Mental Health: 06/11/24 OB - Problem Based A/P Additional Plan (1) Chronic hypertension with superimposed pre-eclampsia: Status: Acute (2) Angiomyolipoma of right kidney: Status: Acute (3) AMA (advanced maternal age) multigravida 35+: Status: Acute (4) : Status: Acute (5) Right ovarian cyst: Problem details: 12/14/23: 9.6 x 10.1 x 11.4 cm Status: Acute (6) Major depression, recurrent: Status: Acute (7) Generalized anxiety disorder: Status: Acute (8) Migraine: Status: Acute Plan The patient was consented for section and blood. She is having a delivery for the indication of: History of delivery x2, undesired fertility, and bilateral ovarian cysts. She was consented for: Repeat delivery, bilateral salpingectomy, bilateral ovarian cystectomy, possible oophorectomy She understands that the four main categories of risk include pain, bleeding, infection, and damage to surrounding structures. Intraoperative pain will be manage with spinal anesthesia or epidural anesthesia. If that those are not effective or not appropriate for the clinical situation, general anesthesia will be administered. Immediately postop, TAP block will be performed. Throughout her recovery course, she will have on PO pain medications such as ibuprofen, Tylenol, and oxycodone. Regarding infection, she understands that we will be delivering appropriate antibiotics, however that the risk of infection following section still is approximately 5-7%. She understands that though the risk is very low that there is always a risk of damage to the bladder, uterus, ovaries, fallopian tubes, bowels, ureters, or even the fetus (0.1-0.3%). This versus increase with subsequent surgery at the same site. She understands that most injuries can be addressed at the time of surgery, however, such an injury may require additional surgeries to fix. She understands that a section carries a risk of bleeding (1-5% risk of hemorrhage), and that while this bleeding can be addressed with multiple medical and surgical modalities (including hysterectomy), that there is the possibility of needing a blood transfusion (0.5-3%). She understands that a section does increase risks for future pregnancies and deliveries including, but not limited to, the risk of uterine rupture or placenta accreta. She desires permanent sterilization so this risk should be obviated. We discussed risks/benefits/alternatives of permanent sterilization. We discussed that there should be clear understanding this is permanent and irreversible. The mechanism of action is to prevent conception by blocking transport of sperm from the lower genital tract to an ovulated oocytes. My preferred method of sterilization is salpingectomy. Salpingectomy is the removal of bilateral fallopian tubes. There is a potential opportunity to decrease the risk of ovarian cancer in patients who already are undergoing pelvic surgery for benign indications. It can decrease the risk of future ovarian cancer by as much as 40-60%. I informed patient that most women who choose sterilization do not regret their decision. CREST study report that 5 year risk of regret is about 7%. Cumulative risk of regret w/in 14 years of procedure is 20% for patient <30 y/o and 6% >30 years of age. Sterilization can be done at the time of delivery or after a vaginal delivery. Patient is aware of alternatives such as medical contraception, LARCs, partner vasectomy etc. given that this was conceived with a copper IUD in place and she needs a delivery regardless, she feels that salpingectomy in the appropriate decision. After counseling, patient was clear and consistent with desire for permanent sterilization and would like to proceed. We discuss the plan for bilateral cystectomy. Given the size of her right ovarian cyst, it is unlikely that there is healthy ovarian tissue to preserve. Oophorectomy on that side is likely. My intention is to preserve at least one ovary. However, bilateral oophorectomy might be necessitated due to certain clinical scenario such as increased concern for malignancy, no normal ovarian tissue noted, bleeding etc. If she has bilateral oophorectomy, she understands that she will need hormone therapy to approximately 51 y/o for best longterm health outcomes. Lastly, VTE after delivery rate is around 0.1-0.4%. Will decrease this risk with SCD use, early ambulation, and thromboprophylaxis medication if needed. We also reviewed postoperative care, recovery, and restrictions. All questions answered to patient's satisfaction and the best of my abilities. Consent form signed and will proceed with the discussed surgical plan. Hgb/plt: 12.4/231 T&S pending OB Exam Physical Exam Vital signs: Pulse BP 85 144/85 H 07/17/24 06:45 07/17/24 06:45 Narrative: Physical exam: General: No acute distress Psych: Alert and oriented x3, full affect HEENT: Normocephalic, atraumatic Lungs: Unlabored breathing Neuro: No focal deficit. Mentating appropriately Pelvic exam: Deferred
[2024-07-17] MEDS: CEFAZOLIN 2 GM INJ IVP (07:32)
--- NOTE | 2024-07-17 07:37 | P.ANES_ITS ---
Anesthesia Charges Start Date/Time Anesthesia Start Date: 07/17/24 Anesthesia Start Time: 07:19 Stop Date/Time Anesthesia Stop Date: 07/17/24 Anesthesia Stop Time: 09:41 Coding CPT Codes CPT Codes: ANESTH CS DELIVERY - 25720 ([id number]) P3 - PATIENT W/SEVERE SYS DISEASE, QK - PICKED EDGE SEWING MACHINE OPERATOR 2-4 CNCRNT ANES PROC, QX - BOAT WRAPPER SVC W/ MD MED DIRECTION
--- NOTE | 2024-07-17 07:37 | W.ANESCHARGE ---
Anesthesia Charges Start Date/Time Anesthesia Start Date: 07/17/24 Anesthesia Start Time: 07:19 Stop Date/Time Anesthesia Stop Date: 07/17/24 Anesthesia Stop Time: 09:41 Coding CPT Codes CPT Codes: ANESTH CS DELIVERY - 35446 ([id number]) P3 - PATIENT W/SEVERE SYS DISEASE, QK - DIRECT MARKETING MANAGER 2-4 CNCRNT ANES PROC, QX - SUPERVISOR TANK HOUSE SVC W/ MD MED DIRECTION
--- NOTE | 2024-07-17 08:09 | SUR.OPER ---
PATIENT QUESTIONS ANSWERED SATISFACTORILY PREOPERATIVELY. PATIENT BROUGHT TO OR #5 BY AMBULATION WITH OB RN. Patient positioned supine on OR #5 bed with a bump under the right hip. Final approval of positioning by surgeon.
[2024-07-17] MEDS: KETOROLAC 30 MG/ML inj IVP ×3 (09:11→21:04)
--- NOTE | 2024-07-17 09:43 | P.ANES_ITS ---
Anesthesia Charges Start Date/Time Anesthesia Start Date: 07/17/24 Anesthesia Start Time: 07:19 Stop Date/Time Anesthesia Stop Date: 07/17/24 Anesthesia Stop Time: 09:41 Coding CPT Codes CPT Codes: ANESTH CS DELIVERY - 58546 ([id number]) P3 - PATIENT W/SEVERE SYS DISEASE, QK - MAINTENANCE APPRENTICE 2-4 CNCRNT ANES PROC, QX - GOLF CLUB ASSEMBLER SVC W/ MD MED DIRECTION
--- NOTE | 2024-07-17 09:43 | W.ANESCHARGE ---
Anesthesia Charges Start Date/Time Anesthesia Start Date: 07/17/24 Anesthesia Start Time: 07:19 Stop Date/Time Anesthesia Stop Date: 07/17/24 Anesthesia Stop Time: 09:41 Coding CPT Codes CPT Codes: ANESTH CS DELIVERY - 23938 ([id number]) P3 - PATIENT W/SEVERE SYS DISEASE, QK - MAINTENANCE SHOP CLERK 2-4 CNCRNT ANES PROC, QX - HOUSEHOLD REFRIGERATION MECHANIC SVC W/ MD MED DIRECTION
--- NOTE | 2024-07-17 09:46 | PM.OBPRCCS ---
Procedure Time Seen by Provider: 09:46 Date of procedure: 07/17/24 Will [facility] bill your pro fee for this procedure?: Yes IV fluids (mL): 1,800 Urine Output (mL): 250 Procedure Description: DELIVERY BY SECTION Date of Service: 07/17/24 Delivery time: 0756 Summary: Admitted for schedule delivery at 36.4 weeks for Superimposed preeclampsia on max dose of labetalol of 600 mg q.i.d. with suboptimal blood pressure control Findings: Moderate amount of scar tissue of fascia to the rectus abdominis, minimal filmy intraabdominal adhesions, bladder tacked up near the previous hysterotomy scar. Normal uterus Approximately 5-6 cm left endometrioma. No torsion of the left ovary. Normal left fallopian tube. Approximately 15 cm right ovarian cyst. Smooth borders. Appears simple. No torsion of the right ovary noted. Normal right fallopian tube. Congested vasculature noted on the right broad ligament. 9 weight 2330 g. Primary Indication(s): 1. Superimposed pre-eclampsia with suboptimally controlled blood pressures on maximum dose of oral labetalol (600 mg QID) 2. Previous delivery x 2 3. Known bilateral ovarian cysts - Large 16.5 x 10.3 x 9.2 cm right ovarian cyst - 5.8 x 4.6 x 5.4 cm left ovarian cyst Postoperative diagnosis: 1. Same Procedures: 1. Repeat Lower uterine transverse section 2. Bilateral salpingectomy 3. Bilateral ovarian cystectomy Specimens Removed: 1. Placenta 2. Bilateral fallopian tubes 3. Left ovarian endometrioma 4. Right ovarian cyst Surgeon: Shae Abdullahi MD Chief Engineering Division Surgeon: Negrita Lugo MD Anesthesia: Spinal and TAP Report: Prophylactic antibiotic, 2 g of Ancef was given before patient was taken to OR. After arrival to the operating room patient was placed in the supine position with left lateral tilt after administration of spinal anesthesia. She was prepped and draped in the usual sterile manner. Laparotomy A pfannenstiel incision was made through the anterior abdominal wall with #10 scalpel approximately 2 cm above the pubic symphysis. The incision was extended sharply with the #10 scalpel through the subcutaneous tissue to the level of fascia. The fascia was entered sharply with a #10 scalpel (Pfannenstiel) in the midline and extended in semi-elliptical fashion with Jimenez scissor. The underlying muscles were dissected off the overlying fascia by grasping the superior aspect of fascia with two priyank clamps and blunt dissection was used along the midline. The fascia was further from rectus muscle with Jimenez scissor and/or cautery. Lysis of adhesion performed. In similar fashion, the lower aspect of fascia was also grasped with two Priyank clamps and both blunt and sharp dissection was used to separate fascia from rectus muscle. The rectus muscles were in the midline sharp with Radha. The peritoneum was then entered sharply with Radha and Volodymyr. The peritoneal incision was then extended superiorly and inferiorly under direct visualization with care being taken to avoid bladder and bowel. Filmy intraabdominal adhesions were noted. The peritoneal incision was enlarged bluntly by lateral traction from the surgeon's and nurses medical assistants phlebotomists's hand. Ricardo retractor was inserted into the abdomen. Delivery A bladder flap was developed by grasping with Tristanian forcep and enter with Metzenbaun scissor. Then sharp and blunt dissection with Metzenbaum scissor and fingers were performed. A low transverse hysterotomy was made then with #10 scalpel and extended laterally and cephalad with fingers in a low transverse fashion with Manu Boss technique with care being taken to avoid injury to the fetus. The amniotic cavity (membrane) was then entered with spontaneous rupture of membrane, and the amniotic fluid was noted to be clear, fetus was delivered cephalic. Umbilical cord was clamped and cut. Baby handed off to team immediately due to poor cry. With delivery of the baby, no extension was noted. Placenta was delivered spontaneously with steady traction on cord and manual separation of placenta from uterine wall. Closure Uterine cavity was cleaned after placental delivery with lap sponge x 3. The hysterotomy was closed in 1 layer with stitches using 0 vicryl with continuous locking stitches. 2 figure of 8 placed on left lower uterine angle due to hematoma noted. After placement of figure of 8, hematoma was noted to be non expanding. Hemostasis was achieved as needed with electrocautery. The ovaries/tubes/uterine surface were evaluated. Findings noted above. Attention was turned towards performing bilateral salpingectomy. The left fallopian tube was removed from the broad ligament using the LigaSure dissecting forceps starting at the fimbriated end of the tube. Sequential pedicles were then formed to the level of the cornua. The tube was then removed at the cornua. The right fallopian tube was removed in a similar manner. Excellent hemostasis was noted of all pedicles. Attention was then turned towards removing the left endometrioma. The cyst wall was incised using Metzenbaum scissors. The cyst was shelled out of the ovarian cortex using blunt and sharp dissection, preserving as much of the normal ovarian tissue as possible. The endometrioma was removed intact. Hemostasis achieved with monopolar cautery at the based. The ovarian defect was closed with 3-0 Vicryl in a locking continuous manner. Attention was then turned towards the right ovarian cyst. This was significantly larger. However, has smooth wall and appeared simple. Again, the cyst wall was incised with Metzenbaum scissors. The cyst wall was shelled out the ovarian cortex using blunt and sharp dissection, preserving as much normal ovarian tissue as possible. Cyst removed intact. Hemostasis was achieved with monopolar cautery at the base. The ovarian cortex was reapproximated in 2 layers of 3-0 Vicryl in a continuous locking fashion. Mikael applied to bilateral ovarian incision line, hysterotomy and bladder flap. Ricardo retractor removed and hemostasis confirmed at all intraabdominal surgical site. Bleeding noted on left rectus abdominis. Figure of 8 applied with excellent hemostasis. Fascia was closed with running stitches using 0 PDS. Subcutaneous layer was irrigated. Hemostasis was checked for and found to be adequate. The subcutaneous layer was closed with running 2-0 chromic sutures. The skin was closed with 4-0 Monocryl subcuticular sutures. The incision was cleaned, steri strip applied and covered with silver dressing. The procedure considered terminate at this time. Intraoperative Complications: None QBL: 974 cc Uterotonics/hemostatic agents: 30 u of pitocin, Mikael, and 1g of TXA Disposition: The patient tolerated the procedure well. She was recovered in Obstetric PACU for close monitoring in stable condition, with a contracted uterus and normal transvaginal bleeding. The infant was sent to mother's bedside. The placenta was sent to pathology. Cord gases technically not able to be obtained due to scant blood in cord. Debrief with OR team performed and specimen reviewed at the conclusion of the procedure. Infant total score - 1 minute: 1 total score - 5 minute: 6 total score - 10 minute: 9
--- NOTE | 2024-07-17 09:49 | P.NB_ITS ---
Nerve Block Nerve Block Time Seen by Provider: 09:30 Date Seen: 07/17/24 Type of block requested by surgeon for post-operative analgesia: TAP Side: bilateral Time out performed: Yes Verification of patient name: Yes Verification of date of : Yes Site marking: site marked Name of person performing procedure: Steven Continuous monitoring Was continuous monitoring of O2 sat, B/P, funeral director/embalmer/owner, recorded every 15 minutes?: Yes Procedure Checklist: sterile prep, needles and gloves Ultrasound guided. Images saved: Yes Medications given in 5ml increments after negative aspiration: Marcaine %: 0.25 mL: 30 Needle gauge: 20 and Exparel mL: 10 Patient tolerated procedure well: Yes Additional comments: Needle noted between internal oblique and transversus abdominus. Local spread visualized Block Charges Block Charge (with Pro Fee): TAP Bilateral Use of Ultrasound Machine for Block: Yes- US Guidance/pain block
[2024-07-17] MEDS: LABETALOL HCL 100 MG TABLET 600 MG PO (10:30)
[2024-07-17] MEDS: LACTATED RINGERS 1000 ML 1,000 ML 75 ML IV (11:23)
[2024-07-17] MEDS: ACETAMINOPHEN 500 MG TABLET 1000 MG PO (11:28)
[2024-07-17] MEDS: ACETAMINOPHEN SUSPENSION 1 BOTTLE 1000 MG PO ×2 (17:40→23:49)
[2024-07-17] MEDS: ESCITALOPRAM 10 MG TABLET PO (21:03)
[2024-07-18] VITALS (7 sets, daily range): BP systolic 111–131; BP diastolic 72–87; PULSE 80–96; RESP 16–18; TEMP 36.6–36.9; O2SAT 95–97
[2024-07-18] MEDS: KETOROLAC 30 MG/ML inj IVP ×3 (02:59→14:36)
[2024-07-18 05:20] LABS: Hematocrit 31.1 % (33.0-51.0); Hemoglobin* 10.2 gm/dL (12.0-16.0); Mean Corpuscular HGB Conc 33 gm/dL (32-36); Mean Corpuscular Hemoglobin 31 pg (26-34); Mean Corpuscular Volume 94 fL (80-100); Platelet Count* 208 K/uL (140-440); Red Blood Count 3.32 m/uL (4.00-5.20); White Blood Count* 15.66 K/uL (4.50-11.00)
[2024-07-18 05:22] LABS: Slide Review Reflex No
[2024-07-18 05:35] LABS: Blood Urea Nitrogen* 19 mg/dL (5-24); Creatinine* 0.6 mg/dL (0.5-1.5); Est. Creatinine Clearance* 115.52; Estimated Glomerular Filt Rate 118 ml/min
[2024-07-18 05:36] LABS: Alanine Aminotransferase* 38 U/L (4-35); Aspartate Amino Transferase* 47 U/L (12-35)
--- NOTE | 2024-07-18 08:24 | PM.OBPNVD1 ---
OB - PN:Subj Subjective Date Seen: 07/18/24 Patient comments OB post-: no complaints, pain well controlled, tolerating diet and flatus present Kimberly status: bottle (pumping) and doing well feeding status: breast and bottle feeding Narrative: Magnolia feels well.? Her pain is well controlled with current medications.? She has no new complaints.? Urinary output is adequate and she is voiding without difficulty.? Has a good appetite, is tolerating a general diet, is passing flatus, and has not had a bowel movement.? Has scant amount of rubra lochia.? She is ambulating well. She is pumping and bottle feeding per her preference. ?Planning repeat labs for later today for elevated AST/ALT. OB - PN: Obj Exam Physical Exam: Vital signs: Temp Pulse Resp BP Pulse Ox O2 Del Method 98.4 F 80 16 128/85 96 Room Air 07/18/24 04:35 07/18/24 07:30 07/18/24 07:30 07/18/24 07:30 07/18/24 07:30 07/18/24 07:30 Narrative: GENERAL APPEARANCE:? normal affect, alert, no distress? MOOD:? appropriate? CHEST:? clear to auscultation and percussion? HEART:? regular rate and rhythm? ABDOMEN:? soft, non-tender the uterine fundus is U/2 and is appropriate for the stage of recovery. Incision dressing is clean, dry and intact.? EXTREMITIES:? normal and no edema? OB - PN: Obj Data Labs Labs: Laboratory Results - last 24 hr 07/18/24 05:15 WBC 15.66 H RBC 3.32 L Hgb 10.2 L Hct 31.1 L MCV 94 MCH 31 MCHC 33 Plt Count 208 BUN 19 Creatinine 0.6 Estimated Creat Clear 115.52 Estimated GFR 118 AST 47 H ALT 38 H OB - PN: A/P Delivery Assessment and Plan (1) Chronic hypertension with superimposed pre-eclampsia: Status: Acute (2) Angiomyolipoma of right kidney: Status: Acute (3) AMA (advanced maternal age) multigravida 35+: Status: Acute (4) Right ovarian cyst: Problem details: 12/14/23: 9.6 x 10.1 x 11.4 cm surgically removed 07/17/24 Status: Acute (5) Major depression, recurrent: Status: Acute (6) Generalized anxiety disorder: Status: Acute (7) Lactating mother: Status: Acute (8) care following delivery: Status: Acute Plan day: 1 Plan: routine care Comments: Anticipate discharge home tomorrow or the following day per patient preference.
[2024-07-18] MEDS: polyethylene glycoL 3350 17 GM PACK PO (09:02)
--- NOTE | 2024-07-18 09:22 | PM.ANPOST ---
Post Anesthesia Note Post Anesthesia Note Patient seen: Inpatient Respiratory Status: adequate Cardiovascular Status: adequate Mental Status: baseline Pain: adequate Temp: baseline Anesthetic awareness: N/A Complications: none Follow care: none
[2024-07-18] MEDS: ACETAMINOPHEN SUSPENSION 1 BOTTLE 1000 MG PO ×2 (11:36→19:36)
[2024-07-18 14:33] LABS: Rapid Plasma Reagin (RPR) Non Reactive (Non Reactive)
[2024-07-18 16:16] LABS: Hematocrit 29.6 % (33.0-51.0); Hemoglobin* 9.9 gm/dL (12.0-16.0); Mean Corpuscular HGB Conc 33 gm/dL (32-36); Mean Corpuscular Hemoglobin 31 pg (26-34); Mean Corpuscular Volume 94 fL (80-100); Platelet Count* 219 K/uL (140-440); Red Blood Count 3.15 m/uL (4.00-5.20); White Blood Count* 13.36 K/uL (4.50-11.00)
[2024-07-18 16:30] LABS: Slide Review Reflex No
[2024-07-18 16:38] LABS: Alanine Aminotransferase* 44 U/L (4-35); Aspartate Amino Transferase* 55 U/L (12-35); Blood Urea Nitrogen* 17 mg/dL (5-24); Creatinine* 0.8 mg/dL (0.5-1.5); Est. Creatinine Clearance* 86.64; Estimated Glomerular Filt Rate 97 ml/min
[2024-07-18] MEDS: IBUPROFEN 100 MG/5 ML SUSP 600 MG PO (20:31)
[2024-07-18] MEDS: ESCITALOPRAM 10 MG TABLET PO (23:24)
[2024-07-19] MEDS: ACETAMINOPHEN SUSPENSION 1 BOTTLE 1000 MG PO ×3 (01:28→15:07)
[2024-07-19 04:22] VITALS: BP 129/83; PULSE 91; RESP 18; O2SAT 96
[2024-07-19] MEDS: IBUPROFEN 100 MG/5 ML SUSP 600 MG PO ×4 (04:25→22:49)
[2024-07-19 07:01] LABS: Hemoglobin* 9.5 gm/dL (12.0-16.0); Mean Corpuscular HGB Conc 33 gm/dL (32-36); Mean Corpuscular Hemoglobin 31 pg (26-34); Mean Corpuscular Volume 95 fL (80-100); Platelet Count* 193 K/uL (140-440); Red Blood Count 3.04 m/uL (4.00-5.20); White Blood Count* 10.99 K/uL (4.50-11.00)
[2024-07-19 07:08] LABS: Slide Review Reflex No
[2024-07-19 07:35] VITALS: BP 126/84; PULSE 94; RESP 16; TEMP 36.7; O2SAT 97
[2024-07-19 07:43] LABS: Alanine Aminotransferase* 53 U/L (4-35); Aspartate Amino Transferase* 57 U/L (12-35); Blood Urea Nitrogen* 13 mg/dL (5-24); Creatinine* 0.6 mg/dL (0.5-1.5); Est. Creatinine Clearance* 115.52; Estimated Glomerular Filt Rate 118 ml/min
--- NOTE | 2024-07-19 08:33 | PM.OBPNVD1 ---
OB - PN:Subj Subjective Date Seen: 07/19/24 Patient comments OB post-: pain well controlled, tolerating diet and flatus present infant status: bottle and feeding status: breast and bottle feeding Narrative: The patient feels well.? The pain is well controlled with current medications.? She has no new complaints.? Urinary output is adequate and she is voiding without difficulty.? Has a good appetite, is tolerating a general diet, is passing flatus, and has not had a bowel movement.? Has moderate amount of rubra lochia.? She is ambulating well. She is pumping and supplementing with formula and reports it is going well.?Blood pressures have remained normal. No REFERRAL MANAGER irritability symptoms. Liver enzymes continue to increase slightly, not doubled. OB - PN: Obj Exam Physical Exam: Vital signs: Temp Pulse Resp BP Pulse Ox O2 Del Method 97.8 F 91 18 129/83 96 Room Air 07/18/24 15:30 07/19/24 04:22 07/19/24 04:22 07/19/24 04:22 07/19/24 04:22 07/19/24 04:22 Narrative: GENERAL APPEARANCE:? normal affect, alert, no distress MOOD:? appropriate CHEST:? clear to auscultation HEART:? regular rate and rhythm ABDOMEN:? soft, non-tender the uterine fundus is At Umbilicus, Midline and is appropriate for the stage of recovery. Incision covered by silver dressing, dry. EXTREMITIES:? normal and no edema OB - PN: Obj Data Labs Labs: Laboratory Results - last 24 hr 07/17/24 07/18/24 07/19/24 06:15 15:57 06:41 WBC 13.36 H 10.99 RBC 3.15 L 3.04 L Hgb 9.9 L 9.5 L Hct 29.6 L 29.0 L MCV 94 95 MCH 31 31 MCHC 33 33 Plt Count 219 193 BUN 17 13 Creatinine 0.8 0.6 Estimated Creat Clear 86.64 115.52 Estimated GFR 97 118 AST 55 H 57 H ALT 44 H 53 H RPR Screen Non Reactive OB - PN: A/P Delivery Assessment and Plan (1) Chronic hypertension with superimposed pre-eclampsia: Status: Acute Assessment and Plan: Blood pressures under well control with current oral antihypertensive regimen of Labetalol 600mg QID. Liver enzymes look to be on increasing trend, have not doubled- will repeat at around 6:30pm tonight. Reviewed with patient that if they increase twice the upper limit of normal- this would be indicative of severe range preeclampsia and we would recommend management with Magnesium Sulfate to decrease risk of seizures, stroke etc... If labs remain stable or show decreasing trend- then most likely she could go home tomorrow. (2) Angiomyolipoma of right kidney: Status: Acute (3) AMA (advanced maternal age) multigravida 35+: Status: Acute (4) Right ovarian cyst: Problem details: 12/14/23: 9.6 x 10.1 x 11.4 cm surgically removed 07/17/24 Status: Acute (5) Major depression, recurrent: Status: Acute (6) Generalized anxiety disorder: Status: Acute (7) Lactating mother: Status: Acute (8) care following delivery: Status: Acute Plan day: 2 Plan: routine care
[2024-07-19 11:50] VITALS: BP 114/76; PULSE 89; RESP 16; TEMP 36.6; O2SAT 96
[2024-07-19] MEDS: polyethylene glycoL 3350 17 GM PACK PO (12:01)
[2024-07-19 17:15] VITALS: BP 129/84; PULSE 95; RESP 16; TEMP 36.7; O2SAT 97
[2024-07-19 18:11] LABS: Hematocrit 28.8 % (33.0-51.0); Hemoglobin* 9.4 gm/dL (12.0-16.0); Mean Corpuscular HGB Conc 33 gm/dL (32-36); Mean Corpuscular Hemoglobin 31 pg (26-34); Mean Corpuscular Volume 95 fL (80-100); Platelet Count* 218 K/uL (140-440); Red Blood Count 3.04 m/uL (4.00-5.20); White Blood Count* 11.07 K/uL (4.50-11.00)
[2024-07-19 18:14] LABS: Slide Review Reflex No
[2024-07-19 18:40] LABS: Alanine Aminotransferase* 74 U/L (4-35); Aspartate Amino Transferase* 79 U/L (12-35); Blood Urea Nitrogen* 15 mg/dL (5-24); Creatinine* 0.7 mg/dL (0.5-1.5); Est. Creatinine Clearance* 99.01; Estimated Glomerular Filt Rate 114 ml/min
[2024-07-19] MEDS: ACETAMINOPHEN 160 MG/5 ML CUP 1000 MG PO (19:43)
[2024-07-19] MEDS: MAGNESIUM IV 4 GM/100 ML PIGGYBACK IVPB (19:55)
[2024-07-19] MEDS: LACTATED RINGERS 1000 ML 1,000 ML 75 ML IV (19:56)
[2024-07-19] MEDS: MAGNESIUM Infusion 40 GM/1,000 ML IV.SOLN IVPB (19:57)
[2024-07-19 20:01] VITALS: BP 145/89; PULSE 97; RESP 16; TEMP 36.8; O2SAT 95
[2024-07-19] MEDS: ESCITALOPRAM 10 MG TABLET PO (21:13)
[2024-07-19 22:12] VITALS: BP 135/83; PULSE 97; RESP 16; O2SAT 96
[2024-07-20] VITALS (11 sets, daily range): BP systolic 112–134; BP diastolic 70–88; PULSE 88–98; RESP 16–18; TEMP 36.4–36.8; O2SAT 94–97
[2024-07-20] MEDS: LACTATED RINGERS 1000 ML 1,000 ML 75 ML IV ×2 (01:59→15:19)
[2024-07-20 02:00] LABS: Hematocrit 29.2 % (33.0-51.0); Hemoglobin* 9.6 gm/dL (12.0-16.0); Mean Corpuscular HGB Conc 33 gm/dL (32-36); Mean Corpuscular Hemoglobin 31 pg (26-34); Mean Corpuscular Volume 95 fL (80-100); Platelet Count* 218 K/uL (140-440); Red Blood Count 3.06 m/uL (4.00-5.20); White Blood Count* 10.26 K/uL (4.50-11.00)
[2024-07-20 02:15] LABS: Slide Review Reflex No
[2024-07-20 02:31] LABS: Alanine Aminotransferase* 90 U/L (4-35); Aspartate Amino Transferase* 87 U/L (12-35); Blood Urea Nitrogen* 13 mg/dL (5-24); Creatinine* 0.6 mg/dL (0.5-1.5); Est. Creatinine Clearance* 115.52; Estimated Glomerular Filt Rate 118 ml/min
[2024-07-20] MEDS: ACETAMINOPHEN 160 MG/5 ML CUP 1000 MG PO (03:11)
[2024-07-20 03:45] LABS: Magnesium* 4.5 mg/dL (1.5-2.6)
[2024-07-20 07:33] LABS: Hematocrit 29.2 % (33.0-51.0); Hemoglobin* 9.6 gm/dL (12.0-16.0); Mean Corpuscular HGB Conc 33 gm/dL (32-36); Mean Corpuscular Hemoglobin 31 pg (26-34); Mean Corpuscular Volume 95 fL (80-100); Platelet Count* 215 K/uL (140-440); Red Blood Count 3.07 m/uL (4.00-5.20); White Blood Count* 9.46 K/uL (4.50-11.00)
[2024-07-20 07:43] LABS: Slide Review Reflex No
[2024-07-20 07:50] LABS: Alanine Aminotransferase* 102 U/L (4-35); Aspartate Amino Transferase* 98 U/L (12-35); Blood Urea Nitrogen* 10 mg/dL (5-24); Creatinine* 0.5 mg/dL (0.5-1.5); Est. Creatinine Clearance* 138.62; Estimated Glomerular Filt Rate 124 ml/min
[2024-07-20 07:51] LABS: Magnesium* 4.9 mg/dL (1.5-2.6)
[2024-07-20] MEDS: IBUPROFEN 100 MG/5 ML SUSP 600 MG PO ×3 (09:10→21:18)
--- NOTE | 2024-07-20 10:10 | PM.OBPNVD1 ---
OB - PN:Subj Subjective Date Seen: 07/20/24 Narrative: 38 yo who is POD#3 following a repeat delivery with bilateral salpingectomies and bilateral ovarian cystectomies. Her and delivery were complicated by chronic hypertension with superimposed pre-eclampsia with severe feature. She has been on a magnesium sulfate infusion since last evening, as her liver enzymes have been steadily increasing >2x normal since delivery. BP has been stable on labetalol 600 mg QID. She generally feels well, even on mag. Denies headache, RUQ pain or swelling. Has had good urine output. Bottle feeding. Postoperative pain well controlled. Ovarian cyst pathology showed bilateral borderline tumors. Referral has been ordered for evaluation by [facility] at [place]. OB - PN: Obj Exam Physical Exam: Vital signs: Temp Pulse Resp BP Pulse Ox O2 Del Method 97.7 F 92 18 112/74 95 Room Air 07/20/24 08:00 07/20/24 10:00 07/20/24 10:00 07/20/24 10:00 07/20/24 10:00 07/20/24 10:00 Constitutional: Constitutional: no acute distress Routine Neck Exam: Neck: Present normal inspection Routine Abdominal Exam: Abdominal: Present soft; Absent tenderness Fundus: Present firm Routine Extremities Exam: Extremities: Present normal inspection and pedal edema; Absent calf tenderness Routine Neurological Exam: Neurological: Present alert and oriented X3 Routine Psychiatric Exam: Psychiatric: Present normal affect Wound Management: Method: suture Examination: Present clean and dry; Absent erythematous Comments: Pfannenstiel incision, Silver Mepilex dressing present OB - PN: Obj Data Labs Labs: Laboratory Results - last 24 hr 07/19/24 07/20/24 07/20/24 18:06 01:56 07:28 WBC 11.07 H 10.26 9.46 RBC 3.04 L 3.06 L 3.07 L Hgb 9.4 L 9.6 L 9.6 L Hct 28.8 L 29.2 L 29.2 L MCV 95 95 95 MCH 31 31 31 MCHC 33 33 33 Plt Count 218 218 215 BUN 15 13 10 Creatinine 0.7 0.6 0.5 Estimated Creat Clear 99.01 115.52 138.62 Estimated GFR 114 118 124 Magnesium 4.5 H* 4.9 H* AST 79 H 87 H 98 H ALT 74 H 90 H 102 H OB - PN: A/P Delivery Assessment and Plan (1) Chronic hypertension with superimposed pre-eclampsia: Problem details: on Mag and labetalol Status: Acute (2) AMA (advanced maternal age) multigravida 35+: Status: Acute (3) Major depression, recurrent: Status: Acute (4) Generalized anxiety disorder: Status: Acute (5) Lactating mother: Status: Acute (6) care following delivery: Status: Acute (7) 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 Continue close monitoring of BP and LFTS. Continue labetalol 600 mg QID..
[2024-07-20] MEDS: ACETAMINOPHEN SUSPENSION 1 BOTTLE 1000 MG PO (12:36)
[2024-07-20] MEDS: polyethylene glycoL 3350 17 GM PACK PO (12:40)
[2024-07-20 13:24] LABS: Hematocrit 28.8 % (33.0-51.0); Hemoglobin* 9.5 gm/dL (12.0-16.0); Mean Corpuscular HGB Conc 33 gm/dL (32-36); Mean Corpuscular Hemoglobin 31 pg (26-34); Mean Corpuscular Volume 95 fL (80-100); Platelet Count* 247 K/uL (140-440); Red Blood Count 3.03 m/uL (4.00-5.20); White Blood Count* 9.52 K/uL (4.50-11.00)
[2024-07-20 13:35] LABS: Slide Review Reflex No
[2024-07-20 13:41] LABS: Alanine Aminotransferase* 134 U/L (4-35); Aspartate Amino Transferase* 125 U/L (12-35); Blood Urea Nitrogen* 10 mg/dL (5-24); Creatinine* 0.6 mg/dL (0.5-1.5); Est. Creatinine Clearance* 115.52; Estimated Glomerular Filt Rate 118 ml/min
[2024-07-20 13:51] LABS: Magnesium* 5.5 mg/dL (1.5-2.6)
[2024-07-20] MEDS: MAGNESIUM Infusion 40 GM/1,000 ML IV.SOLN IVPB (16:59)
[2024-07-20 19:09] LABS: Hematocrit 28.6 % (33.0-51.0); Hemoglobin* 9.5 gm/dL (12.0-16.0); Mean Corpuscular HGB Conc 33 gm/dL (32-36); Mean Corpuscular Hemoglobin 32 pg (26-34); Mean Corpuscular Volume 95 fL (80-100); Platelet Count* 251 K/uL (140-440); Slide Review Reflex No; White Blood Count* 9.79 K/uL (4.50-11.00)
[2024-07-20 19:27] LABS: Alanine Aminotransferase* 157 U/L (4-35); Aspartate Amino Transferase* 142 U/L (12-35); Blood Urea Nitrogen* 12 mg/dL (5-24); Creatinine* 0.6 mg/dL (0.5-1.5); Est. Creatinine Clearance* 115.52; Estimated Glomerular Filt Rate 118 ml/min
[2024-07-20 19:28] LABS: Magnesium* 5.1 mg/dL (1.5-2.6)
[2024-07-20] MEDS: ESCITALOPRAM 10 MG TABLET PO (21:17)
[2024-07-21 01:22] VITALS: BP 127/82; PULSE 92; RESP 18; O2SAT 96
[2024-07-21 05:13] VITALS: BP 134/87; PULSE 87; RESP 16; TEMP 36.8; O2SAT 96
[2024-07-21] MEDS: IBUPROFEN 100 MG/5 ML SUSP 600 MG PO ×2 (05:13→10:55)
[2024-07-21 06:52] LABS: Hematocrit 27.8 % (33.0-51.0); Hemoglobin* 9.1 gm/dL (12.0-16.0); Mean Corpuscular HGB Conc 33 gm/dL (32-36); Mean Corpuscular Hemoglobin 31 pg (26-34); Mean Corpuscular Volume 96 fL (80-100); Platelet Count* 229 K/uL (140-440); Red Blood Count 2.91 m/uL (4.00-5.20); White Blood Count* 9.01 K/uL (4.50-11.00)
[2024-07-21 06:55] LABS: Slide Review Reflex No
[2024-07-21 07:06] LABS: Alanine Aminotransferase* 165 U/L (4-35); Aspartate Amino Transferase* 141 U/L (12-35); Blood Urea Nitrogen* 14 mg/dL (5-24); Creatinine* 0.6 mg/dL (0.5-1.5); Est. Creatinine Clearance* 115.52; Estimated Glomerular Filt Rate 118 ml/min
[2024-07-21] MEDS: polyethylene glycoL 3350 17 GM PACK PO (07:48)
[2024-07-21] MEDS: ACETAMINOPHEN SUSPENSION 1 BOTTLE 1000 MG PO (07:48)
[2024-07-21 07:50] VITALS: BP 126/84; PULSE 86; RESP 16; TEMP 36.7; O2SAT 96
--- NOTE | 2024-07-21 10:30 | PM.OBDSVD1 ---
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: Status: Acute Problem details: bilateral Exam Const: Vital Signs, click to edit/add: Vital Signs - 24 hr 07/20/24 12:00 07/20/24 14:00 07/20/24 16:00 Temperature 98.2 F 98.2 F Pulse Rate [Pulse Oximeter] 92 90 92 Respiratory Rate 18 18 18 Blood Pressure [Le ft Arm] 117/80 122/80 131/85 Pulse Oximetry 95 95 97 Oxygen Delivery Me thod Room Air Room Air Room Air 07/20/24 18:03 07/20/24 21:24 07/21/24 01:22 Temperature 97.9 F Pulse Rate [Pulse Oximeter] 91 96 92 Respiratory Rate 18 18 18 Blood Pressure [Le ft Arm] 127/84 133/85 127/82 Pulse Oximetry 97 95 96 Oxygen Delivery Me thod Room Air Room Air Room Air 07/21/24 05:13 07/21/24 07:50 Temperature 98.2 F 98.1 F Pulse Rate [Pulse Oximeter] 87 86 Respiratory Rate 16 16 Blood Pressure [Le ft Arm] 134/87 126/84 Pulse Oximetry 96 96 Oxygen Delivery Me thod Room Air Room Air Documenting provider has reviewed patient's vital signs: yes Common normals: no apparent distress and oriented x3 General appearance: cooperative and comfortable HENMT: Common normals: normocephalic Head and scalp: normocephalic Resp: Common normals: normal respiratory effort Cardio: Common normals: regular rate and regular rhythm Rate: regular rate Rhythm: regular rhythm GI: Common normals: soft to palpation and non-tender Inspection: normal to inspection Palpation: soft Other: Silver Mepilex dressing present across wound, dry. Extremity: Common normals: normal to inspection and no pedal edema Neuro: Common normals: oriented x3 Psych: Common normals: affect normal OB - DS: Summary Hospital Course Hospital Course: The patient is a 38 year old who is POD#4 following a repeat delivery with bilateral salpingectomies and bilateral ovarian cystectomies at 36 4/7 weeks gestation. She was admitted to the [facility] on 07/17/24 for delivery. She had an uncomplicated delivery. She delivered a viable female infant. She is pumping and bottle feeding. , she developed severe features (elevated transaminases more than twice normal) and was treated with magnesium sulfate infusion for 24 hours beginning on the evening of 07/19/24. Her blood pressures have remained stable on labetalol 600 mg QID. She has been asymptomatic. Transaminases continued to increase, but appeared to be plateauing on the day of discharge. Pathologic examination of the bilateral ovarian cysts demonstrated bilateral boderline tumors. Peripartum Data Infant delivery method: Repeat Section Procedures: Procedures Operation Date: 07/17/24 07:15 Actual Procedure Side Surgeon p Repeat Section, Bilateral SALPINGECTOMY, Bilateral Ovarian Cystectomy Bilateral Shae Abdullahi MD Procedures: tubal ligation/salpingectomy (and bilateral ovarain cystectomties) complications: other (development of severe features (elevated transaminases)) [place] Infant Gender: Female Discharge Plan: Home Status at Discharge Functional status at discharge: independent ambulation Overall status at discharge: patient is back to baseline Time Spent with Patient Time attestation: Total time spent providing and/or coordinating discharge services: Time spent: Greater than 30 minutes Discharge Plan Discharge Disposition: Home, Self-Care Date of Admission: 07/17/24 05:43 Attending Provider on Discharge: Yesi Laboy Primary Care Provider: Az Maciel Condition: Stable Anticipated Discharge Date/Time: 07/21/24 10:41 Discharge Medications: New ibuprofen [Children's Ibuprofen] 100 mg/5 mL Suspension 600 mg PO Q6H PRNQty: 840 0RF Continued aspirin [Brennan Chewable Aspirin] 81 mg tablet,chewable 81 mg PO QDAY Qty: 60 2RF Classic 28 mg iron- 800 mcg tablet 1 tab PO QDAY loratadine [Claritin] 10 mg tablet 10 mg PO QDAY PRN escitalopram oxalate 10 mg tablet 10 mg PO DAILY Qty: 90 1RF Rx Instructions: Fill when needed omeprazole 20 mg capsule,delayed release(DR/EC) 20 mg PO QDAY Qty: 30 0RF calcium carbonate [Tums] 200 mg calcium (500 mg) tablet,chewable 200 mg PO BID PRN Changed labetalol 200 mg tablet 600 mg PO QID Qty: 60 1RF Discharge Orders: Discharge Order (Routine); Ordered 07/21/24 Ordered By: Yesi Laboy Patient Education: OB High Blood Pressure DC, OB Over the Counter Medication Information, OB /Breast Feeding Additional Instructions: Follow up tomorrow, 07/22/24, in [facility] for BP check and labs (AST, ALT). Follow up in 3-5 days in [facility] for wound check/dressing removal. Follow Up Appointments: Az Maciel MD [Primary Care Provider, Family Practice] Forms: [facility] Inst[facility] DS:Data Additional Comments Additional comments: AST 141, ALT 165 on 07/21/24
[2024-07-21 11:35] VITALS: BP 123/82; PULSE 95; RESP 16; TEMP 37; O2SAT 97
== END 2024-07-21 11:56 | disposition home or self-care (01) | DRG 784 ==
PROVIDERS: Obstetrics & Gynecology; Admitting Provider Obstetrics & Gynecology; PCP Family Medicine; Visit Provider Obstetrics & Gynecology
PROC: 10D00Z1 Extraction of Products of Conception, Low, Open Approach (ICD-10-PCS; CPT 59514; principal; 2024-07-17 07:15)
DX: O34.211 Maternal care for low transverse scar from previous cesarean delivery (principal); C56.3 Malignant neoplasm of bilateral ovaries; F33.9 Major depressive disorder, recurrent, unspecified; O10.92 Unspecified pre-existing hypertension complicating childbirth; O34.83 Maternal care for other abnormalities of pelvic organs, third trimester; O14.15 Severe pre-eclampsia, complicating the puerperium; O40.3XX0 Polyhydramnios, third trimester, not applicable or unspecified; O99.824 Streptococcus B carrier state complicating childbirth; G89.18 Other acute postprocedural pain; O99.344 Other mental disorders complicating childbirth; F41.1 Generalized anxiety disorder; D17.71 Benign lipomatous neoplasm of kidney; G43.909 Migraine, unspecified, not intractable, without status migrainosus; Z37.0 Single live birth; Z3A.36 36 weeks gestation of pregnancy
CPT/HCPCS: 01961; 36415; 64488; 76942; 82565; 82570; 83735; 84156; 84450; 84460; 84520; 85018; 85025; 85027; 86592; 86850; 86900; 86901; 88302; 88307; A4314; A9270; J0665; J0666; J0690; J1885; J2274; J2371; J2405; J2590; J3475; J7120

== ENCOUNTER 2024-07-22 08:42 | Outpatient (CLI) | payer OTHER, SELFPAY | END 2024-07-22 08:43 | disposition home or self-care (01) | PROVIDERS: PCP Family Medicine; Visit Provider Obstetrics & Gynecology | DX: O11.5 Pre-existing hypertension with pre-eclampsia, complicating the puerperium (principal); R74.01 Elevation of levels of liver transaminase levels | CPT/HCPCS: 84450; 84460 ==

== ENCOUNTER 2024-08-29 11:35 | Outpatient (CLI) | payer OTHER, SELFPAY | END 2024-08-29 11:36 | disposition home or self-care (01) | LOC: NFLDREF 11:36 | PROVIDERS: PCP Family Medicine; Visit Provider Obstetrics & Gynecology | DX: O16.5 Unspecified maternal hypertension, complicating the puerperium (principal); N39.0 Urinary tract infection, site not specified | CPT/HCPCS: 84450; 84460; 87086 ==

== ENCOUNTER 2024-09-20 08:48 | Outpatient (CLI) | payer OTHER, SELFPAY ==
--- NOTE | 2024-09-20 09:15 | CRLHL7_ITS ---
For Patients: As a result of the Century Cures Act, medical imaging exams and procedure reports are released immediately into your electronic medical record. You may view this report before your referring provider. If you have questions, please contact your health care provider. INDICATION: Status post removal cysts bilateral ovaries ; bilateral salpingectomy. COMPARISON: MRI of the abdomen and pelvis 04/02/2024. TECHNIQUE: MR of the pelvis without and with intravenous contrast; precontrast T1 and T2 weighted imaging; T2 haste imaging; diffusion-weighted imaging; and on out of phase imaging; postcontrast imaging including subtraction; 20 cc of dotarem contrast was injected IV. FINDINGS: scar identified in the lower uterine segment anteriorly. Uterus is unremarkable. No adnexal pathology. The right ovary measures 3.7 x 3.2 cm and the left ovary measures 4.9 x 2.3 cm with multiple follicles bilaterally. No abnormal pelvic lymphadenopathy. No free fluid identified in the pelvic cul-de-sac. No enhancing mass lesions. IMPRESSION: 1. Normal appearance of the ovaries. 2. Previously noted ovarian cysts are not identified on the current study. 3. scar anterior lower uterine segment. Dictated by Reji Casiano MD @ 09/23/2024 11:46:33 AM (Electronically Signed)
== END 2024-09-20 08:49 | disposition home or self-care (01) ==
LOC: MRI 08:48
PROVIDERS: PCP Family Medicine; Visit Provider Family Medicine
DX: D49.59 Neoplasm of unspecified behavior of other genitourinary organ (principal)
CPT/HCPCS: 72197; A9575

== ENCOUNTER 2024-12-02 09:03 | Outpatient (CLI) | payer OTHER, SELFPAY ==
--- NOTE | 2024-12-02 09:15 | CRLHL7_ITS ---
For Patients: As a result of the Century Cures Act, medical imaging exams and procedure reports are released immediately into your electronic medical record. You may view this report before your referring provider. If you have questions, please contact your health care provider. CLINICAL HISTORY: angiomyolipoma of right kidney COMPARISON: 05/06/2024 TECHNIQUE: Castellano scale and color Doppler images were acquired of the kidneys and urinary bladder. FINDINGS: Echogenic nonshadowing structure within the right kidney measures 13 x 10 x 10 millimeters, not significantly changed. No hydronephrosis. The right kidney measures 11.3cm in length and the left kidney measures 11.8cm in length. The renal cortex appears of normal thickness. The urinary bladder appears normal. Color Doppler images reveal a normal appearance of both ureteral jets. There is no evidence of bladder calculi or diverticula. Prevoid bladder volume 102 cc. Postvoid bladder volume 9 cc. IMPRESSION: Stable right renal angiomyolipoma. Dictated by Az Downey MD @ 12/02/2024 10:11:35 AM (Electronically Signed)
== END 2024-12-02 09:04 | disposition home or self-care (01) ==
LOC: US 09:04
PROVIDERS: PCP Family Medicine; Visit Provider Internal Medicine Nephrology
DX: D17.71 Benign lipomatous neoplasm of kidney (principal)
CPT/HCPCS: 76770

== ENCOUNTER 2025-01-13 13:58 | Outpatient (CLI) | payer OTHER, SELFPAY ==
--- NOTE | 2025-01-22 13:13 | W.PM.SLEEP ---
Sleep Study Details Details Interpreting Provider: William Date of Sleep Study: 01/13/25 Sleep Study Details: STUDY TYPE:? Home unattended ? BMI:? 37.77 ORDERING PROVIDER:? William INDICATION:? Concern for sleep apnea ? SLEEP SUMMARY:? 434.5 minutes monitored RESPIRATORY SUMMARY:? AHI 50.4 per CMS guideline, 56.6 per rule 1A Low oxygen 70 17.6% of study oxygen less than 90% Snoring 95.8% PERIODIC LIMB MOVEMENTS OF SLEEP:? Not recorded CARDIAC:? Range 69-112, mean 88.8 beats per minute IMPRESSION:? Severe obstructive sleep apnea with significant hypo oxygenation RECOMMENDATION: Weight loss is recommended. Would recommend an in-lab titration or consideration of AutoSet CPAP with close follow-up.
== END 2025-01-13 13:59 | disposition home or self-care (01) ==
LOC: SLEEP 13:58
PROVIDERS: PCP Family Medicine; Visit Provider Otolaryngology
DX: G47.33 Obstructive sleep apnea (adult) (pediatric) (principal)
CPT/HCPCS: 95806